=== PATIENT | male | born 1990 ===

== ENCOUNTER 2021-11-23 12:00 | Observation (INO) ==
[2021-11-23 13:08] LABS: ABS Basophils 0.1 10^3/ul (0-0.2); ABS Lymphocytes 1.2 10^3/ul (1.0-4.8); ABS Monocytes 0.4 10^3/ul (0-0.8); ABS Neutrophils 13.4 10^3/ul (1.5-7.7); Hematocrit 43 % (42-52); Hemoglobin 14.9 g/dL (14.0-18.0); Lymphocyte % 7.9 %; Mean Corpuscular HGB Conc 35 g/dL (31-36); Mean Corpuscular Hemoglobin 30 pg (27-31); Mean Corpuscular Volume 86 fL (80-94); Mean Platelet Volume 8.5 fL (7.4-10.4); Platelet Count 228 10^3/uL (150-450); Red Blood Count 5.03 10^6 /uL (4.18-5.48); Red Cell Distribution Width 14 % (10-15); White Blood Count 15.1 10^3/uL (3.5-10.8)
[2021-11-23] MEDS ORDERED: Lactated Ringers 1000 ml BAG 1,000 ML IV ONE (13:11)
[2021-11-23] MEDS ORDERED: Ondansetron 4 mg VIAL 2 MG/ML 2 ml VIAL IV ONE (13:11)
[2021-11-23 13:26] LABS: Urine Appearance Clear; Urine Color Yellow; Urine Glucose Negative (Negative)
[2021-11-23 13:27] LABS: Urine Bilirubin Negative (Negative); Urine Blood Negative (Negative); Urine Ketones Negative (Negative); Urine Nitrite Negative (Negative); Urine Protein Negative (Negative); Urine Specific Gravity 1.025 (1.005-1.030); Urine Urobilinogen 0.2 (Negative) (Negative)
[2021-11-23 13:36] LABS: ALT 70 U/L (7-52); Albumin 4.7 g/dL (3.2-5.2); Albumin/Globulin Ratio 1.5 (1-3); Alkaline Phosphatase 113 U/L (35-149); Blood Urea Nitrogen 15 mg/dL (6-24); CO2 Carbon Dioxide 22 mmol/L (22-32); Calcium 9.7 mg/dL (8.6-10.3); Chloride 101 mmol/L (101-111); Globulin 3.1 g/dL (2-4); Glucose 105 mg/dL (70-100); Lipase 17 U/L (11.0-82.0); Sodium 136 mmol/L (135-145); Total Protein 7.8 g/dL (6.4-8.9)
[2021-11-23 13:51] LABS: Anion Gap 13 mmol/L (2-11)
[2021-11-23] MEDS ORDERED: Iodixanol (CONTRAST) 320 MG/ML 100 ML SDV IV ONE (14:00)
[2021-11-23 15:37] LABS: Potassium Redraw 3.7 mmol/L (3.5-5.0)
[2021-11-23] MEDS ORDERED: Piperacillin/Tazobac ADVAN 3.375 GM in NS 0.9% 100 ml BAG 100 ML IV ONE (16:22)
[2021-11-23] MEDS ORDERED: NS 0.45% 1000 ml BAG 1,000 ML IV SCH (17:00)
[2021-11-23] MEDS ORDERED: HYDROmorphone 1 MG/1 ML SYRINGE IV SLOW PU PRN (21:21)
[2021-11-23] MEDS ORDERED: Ondansetron 4 mg VIAL 2 MG/ML 2 ml VIAL IV PRN (21:21)
[2021-11-23] MEDS ORDERED: NS 0.9% 1000 ml BAG 1,000 ML IV SCH (21:30)
[2021-11-24] MEDS ORDERED: Piperacillin/Tazobactam VIAL 3.375 GM in NS 0.9% 100 ml BAG 100 ML IVPB SCH (02:00)
[2021-11-24] MEDS ORDERED: Bupivacaine 0.5% SDV PF 30ML VIAL ONE (05:34)
[2021-11-24] MEDS ORDERED: Lidocaine 1% w EPI 1:200,000 SDV 30 ML VIAL ONE (05:34)
[2021-11-24] MEDS ORDERED: fentaNYL 100 mcg/2 ml 50 MCG/ML VIAL ONE (05:50)
[2021-11-24] MEDS ORDERED: Midazolam 5 mg/5 ml VIAL 1 mg/ml 5 ml VIAL (5 mg) ONE (05:50)
[2021-11-24] MEDS ORDERED: Succinylcholine 200 mg VIAL 20 mg/ml 10 ml VIAL (200 mg) ONE (05:52)
[2021-11-24] MEDS ORDERED: Lidocaine 2% PF 5 ML VIAL ONE (05:52)
[2021-11-24] MEDS ORDERED: Rocuronium 50 mg VIAL 10 mg/ml 5 ml VIAL (50 mg) ONE (05:52)
[2021-11-24] MEDS ORDERED: Propofol 10 MG/ML 20 ML BTL ONE (05:52)
[2021-11-24] MEDS ORDERED: HYDROmorphone 1 MG/1 ML SYRINGE IV PRN (07:28)
[2021-11-24] MEDS ORDERED: Naloxone 0.4 mg VIAL 0.4 mg/ml 1 ml VIAL IV PRN (07:28)
[2021-11-24 11:05] VITALS: BP 121/73
== END 2021-11-24 11:46 | disposition home or self-care (01) ==
LOC: ED 12:00 → ICU 16:18 → OR 16:18 → ICU 23:28
PROVIDERS: ADMIT Surgery; ATTEND Physician Assistant Surgical